=== PATIENT | male | born 1990 | race Caucasian/White ===

== ENCOUNTER 2022-09-10 21:10 | Emergency (ER) | payer OTHER ==
[~2022-09-10] VITALS: Ht 177.8 cm; Wt 86.4 kg
[2022-09-10 21:19] VITALS: BP 133/68
== END 2022-09-10 22:55 | disposition home or self-care (01) ==
LOC: M ED 21:10
DX: S20.211A Contusion of right front wall of thorax, initial encounter (principal); S70.01XA Contusion of right hip, initial encounter; S39.012A Strain of muscle, fascia and tendon of lower back, initial encounter; V49.40XA Driver injured in collision with unspecified motor vehicles in traffic accident, initial encounter; F17.200 Nicotine dependence, unspecified, uncomplicated; Y92.410 Unspecified street and highway as the place of occurrence of the external cause; Y93.9 Activity, unspecified; Y99.9 Unspecified external cause status

== ENCOUNTER 2022-10-07 16:38 | Emergency (ER) | payer OTHER ==
[~2022-10-07] VITALS: Ht 25.4 cm; Wt 82.5 kg
[2022-10-07 16:39] VITALS: BP 134/82
[2022-10-07] MEDS ORDERED: KETOROLAC 60MG 2ML VIAL IM ONE (23:20)
[2022-10-08] MEDS ORDERED: DICL20GE TP (00:48)
[2022-10-08] MEDS ORDERED: CAPS0.022 TOP (00:48)
== END 2022-10-08 00:57 | disposition home or self-care (01) ==
LOC: M ED 16:38
DX: M25.511 Pain in right shoulder (principal); M25.512 Pain in left shoulder; M25.562 Pain in left knee; M25.561 Pain in right knee; S80.02XA Contusion of left knee, initial encounter; V49.40XD Driver injured in collision with unspecified motor vehicles in traffic accident, subsequent encounter; Y92.410 Unspecified street and highway as the place of occurrence of the external cause; F17.200 Nicotine dependence, unspecified, uncomplicated
CPT/HCPCS: 73030; 73564; 76882; 96372; 99282; J1885

== ENCOUNTER → 2022-10-22 | Outpatient (CLI) | payer OTHER ==
[~2022-10-22] MED LIST: CAPS0.022 TOP; DICL20GE TP
== END ==
LOC: M PLARAD 13:40
PROVIDERS: ATTEND Orthopaedic Surgery
DX: S80.02XA Contusion of left knee, initial encounter (principal); M25.562 Pain in left knee; M25.561 Pain in right knee

== ENCOUNTER → 2022-10-28 | Outpatient (REF) | payer OTHER | LOC: M LAB REF 12:58 | PROVIDERS: ATTEND Orthopaedic Surgery | DX: S80.02XA Contusion of left knee, initial encounter (principal) ==

== ENCOUNTER → 2022-10-29 | Outpatient (CLI) | payer OTHER | LOC: M PLARAD 10:12 | PROVIDERS: ATTEND Orthopaedic Surgery | DX: M50.222 Other cervical disc displacement at C5-C6 level (principal); M50.223 Other cervical disc displacement at C6-C7 level; M47.812 Spondylosis without myelopathy or radiculopathy, cervical region; M51.26 Other intervertebral disc displacement, lumbar region; M51.36 Other intervertebral disc degeneration, lumbar region; M51.24 Other intervertebral disc displacement, thoracic region ==

== ENCOUNTER → 2022-11-03 | Outpatient (CLI) | payer OTHER | LOC: M SOG 09:17 | PROVIDERS: ATTEND Orthopaedic Surgery | DX: S42.001A Fracture of unspecified part of right clavicle, initial encounter for closed fracture (principal); X58.XXXA Exposure to other specified factors, initial encounter; Y99.9 Unspecified external cause status; Y93.9 Activity, unspecified; Y92.9 Unspecified place or not applicable ==

== ENCOUNTER → 2022-11-10 | Outpatient (RCR) | payer OTHER | LOC: M PT 10-27 09:29 | PROVIDERS: ATTEND Orthopaedic Surgery | DX: M54.50 Low back pain, unspecified (principal); M25.519 Pain in unspecified shoulder; M25.562 Pain in left knee ==

== ENCOUNTER 2022-11-13 08:00 | Outpatient (RCR) | payer OTHER | END 2022-12-11 | LOC: M PT 08:00 | PROVIDERS: ATTEND Orthopaedic Surgery | DX: M54.50 Low back pain, unspecified (principal); M25.511 Pain in right shoulder; M25.512 Pain in left shoulder ==